=== PATIENT | male | born 1980 | race African-American/Black ===

== ENCOUNTER 2018-03-13 20:07 | Emergency (ER) | payer MEDICAID, OTHER ==
[~2018-03-13] VITALS: Ht 185.4 cm; Wt 73.0 kg
[2018-03-13 20:20] VITALS: BP 117/89
--- NOTE | 2018-03-13 20:39 | Emergency Room Report ---
History of Present Illness General Chief Complaint: Upper Extremity Injury Present Illness HPI 38 Yo male presents to the ED c/O 06/11 in severity right hand and wrist pain s/ p FOOSH while playing basket ball today. pt also states that he has been doing a lot of "push-ups" lately when working out and feels weakness in the right wrist upon weight bearing. Denies neck or back pain. denies open wounds or bruises. Denies numbness tingling or loss of sensation or gross motor movements of the extremities, incontinence of bowel or bladder. Denies CP, Palpitations, LOC, AMS, dizziness, Changes in Vision, Sensation, paresthesias, or a sudden severe headache. Allergies: Coded Allergies: NO KNOWN DRUG ALLERGIES (Unverified Allergy, Unknown, 12/08/14) Patient History Past Medical History: see triage record Past Surgical History: none Pertinent Family History: none Reviewed Nursing Documentation: PMH: Agreed; PSxH: Agreed Nursing Documentation-PMH Hx Asthma: Yes Review of Systems All Other Systems: negative except mentioned in HPI Physical Exam Vital Signs Date Time Temp Pulse Resp B/P (MAP) Pulse Ox O2 Delivery O2 Flow Rate FiO2 03/13/18 20:13 98.5 127 18 156/103 96 Room Air 98.4 Sp02 EP Interpretation: reviewed, normal General Appearance: no apparent distress, alert, GCS 15, non-toxic Head: normocephalic, atraumatic ENT: hearing grossly normal, normal voice Neck: full range of motion Respiratory: chest non-tender, lungs clear, normal breath sounds, speaking full sentences Cardiovascular #1: regular rate, rhythm, normal capillary refill Musculoskeletal: back normal, gait/station normal, normal range of motion, tender - medial wrist and palm ttp, no snuff box ttp, no obvious deformity, no bruises or abrasions. FROM , NVI Neurologic: alert, oriented x3, responsive, motor strength/tone normal, sensory intact, speech normal, grossly normal Psychiatric: judgement/insight normal Skin: normal color, no rash, warm/dry, well hydrated Lymphatic: no adenopathy Medical Decision Making PA Attestation Dr. diaz is my supervising Physician whom patient management has been discussed with. Diagnostic Impression: Primary Impression: Wrist pain Qualified Codes: M25.531 - Pain in right wrist Additional Impressions: Hand pain, right Right wrist sprain Qualified Codes: S63.501A - Unspecified sprain of right wrist, initial encounter ER Course 38 Yo male presents to the ED c/O 06/11 in severity right hand and wrist pain s/ p FOOSH while playing basket ball today. pt also states that he has been doing a lot of "push-ups" lately when working out and feels weakness in the right wrist upon weight bearing. Ddx considered but are not limited to Fracture, dislocation, contusion, Sprain/ Strain/Spasm, scaphoid fx, tendonitis just to name a few. Vital signs: are WNL, pt. is afebrile H&PE are most consistent with musculoskeletal injury will perform imaging to r/ o fractures/dislocations. ORDERS: - X-ray's of hand and wrist - negative for fx, Dislocation, or significant soft tissue injury, per preliminary read in ED, and signed by ROSARIO Shepherd , my supervising physician has reviewed, and agrees with my interpretation. ED INTERVENTIONS: Right wrist Splint applied by vehicle glass technician. Pt. remains neurovascularly intact. DISCHARGE: At this time pt. is stable for d/c to home. Will provide printed patient care instructions, and any necessary prescriptions. Care plan and follow up instructions have been discussed with the patient prior to discharge. Other X-Ray Diagnostic Results Other X-Ray Diagnostic Results #1: X-Ray ordered: right Hand # of Views/Limited Vs Complete: 3 View Indication: Pain EP Interpretation: Yes PA Xray: Interpretation reviewed, by supervising MD, and agrees with findings. Interpretation: no dislocation, no soft tissue swelling, no fractures Impression: No acute disease Electronically Signed by: Rachel Shepherd PA-C Other X-Ray Diagnostic Results #2: X-Ray ordered: Right wrist # of Views/Limited Vs Complete: 3 View Indication: Pain EP Interpretation: Yes PA Xray: Interpretation reviewed, by supervising MD, and agrees with findings. Interpretation: no dislocation, no soft tissue swelling, no fractures Impression: No acute disease Electronically Signed by: Rachel Shepherd PA-C Last Vital Signs Date Time Temp Pulse Resp B/P (MAP) Pulse Ox O2 Delivery O2 Flow Rate FiO2 03/13/18 20:13 98.5 127 18 156/103 96 Room Air 98.4 Disposition: HOME, SELF-CARE Condition: Stable Scripts Ibuprofen* (MOTRIN*) 600 Mg Tablet 600 MG ORAL THREE TIMES A DAY, #20 TAB 0 Refills Prov: Rachel Shepherd 03/13/18 Patient Instructions: Wrist Sprain Additional Instructions: Take medications as directed. Follow up with a Primary Care Provider in 3-5 days, even if your symptoms have resolved. --Please review list of primary care clinics, if you do not already have a primary care provider Return sooner to ED if new symptoms occur, or current symptoms become worse. - Please note that this Emergency Department Report was dictated using [employer] technology software, occasionally this can lead to erroneous entry secondary to interpretation by the dictation equipment. Rachel Shepherd March 13, 2018 20:39
--- NOTE | 2018-03-13 21:05 | Diagnostic Imaging Report ---
EXAM: XR Right Wrist Complete, 3 or More Views CLINICAL HISTORY: PAIN TECHNIQUE: Frontal, lateral and oblique views of the right wrist. COMPARISON: Right hand x-rays obtained the same date. FINDINGS: Bones/joints: Unremarkable. No visible displaced fracture. No dislocation. No osseous erosions. Visualized joint spaces appear unremarkable. Soft tissues: Unremarkable. No radiopaque foreign body. IMPRESSION: Unremarkable right wrist x-rays.
--- NOTE | 2018-03-13 21:08 | Diagnostic Imaging Report ---
EXAM: XR Right Hand Complete, 3 or More Views CLINICAL HISTORY: PAIN TECHNIQUE: Frontal, lateral and oblique views of the right hand. COMPARISON: Right wrist x-rays obtained the same date. FINDINGS: Bones/joints: Mild cortical irregularity and angulation noted within the distal diaphysis of the fifth metacarpal. No visible acute displaced fracture. No dislocation. No osseous erosions. Visualized joint spaces appear unremarkable. Soft tissues: Unremarkable. No radiopaque foreign body. IMPRESSION: 1. Mild osseous irregularity and angulation within the distal diaphysis of the fifth metacarpal may suggest an old healed fracture. 2. Otherwise unremarkable x-rays of the right hand.
[2018-03-13] MEDS ORDERED: IBUPROFEN600 MG ORAL (21:10)
[2018-03-13 21:20] VITALS: BP 120/84
[2018-03-13 21:30] VITALS: BP 120/84
== END 2018-03-13 21:30 | disposition home or self-care (01) ==
LOC: EMR 21:11
DX: S63.501A Unspecified sprain of right wrist, initial encounter (principal); X50.9XXA Other and unspecified overexertion or strenuous movements or postures, initial encounter; Y93.67 Activity, basketball; Y92.9 Unspecified place or not applicable; J45.909 Unspecified asthma, uncomplicated
CPT/HCPCS: 99284